=== PATIENT | female | born 1945 | race Caucasian/White ===

== ENCOUNTER → 2017-07-06 | Outpatient (CLI) | payer OTHER | END | disposition home or self-care (01) | LOC: RAH 11:51 | PROVIDERS: ATTEND Physician Assistant Medical | DX: R05 Cough (principal); I10 Essential (primary) hypertension | CPT/HCPCS: 71046 ==

== ENCOUNTER → 2017-07-12 | Outpatient (CLI) | payer OTHER | END | disposition home or self-care (01) | LOC: RAH 08:46 | PROVIDERS: ATTEND Internal Medicine Critical Care Medicine | DX: K59.00 Constipation, unspecified (principal); R07.81 Pleurodynia; Z90.49 Acquired absence of other specified parts of digestive tract | CPT/HCPCS: 71100; 76700 ==